=== PATIENT | male | born 1985 | race Caucasian/White ===

== ENCOUNTER 2025-03-31 23:02 | Inpatient (IN) | payer OTHER ==
[~2025-03-31] VITALS: Ht 177.8 cm; Wt 123.3 kg
[2025-04-01] VITALS (14 sets, daily range): BP systolic 101–188; BP diastolic 57–84
[2025-04-01] MEDS ORDERED: LOSARTAN POTAS100 M1 PO (01:26)
[2025-04-01] MEDS ORDERED: ATOR80 PO (01:28)
[2025-04-01] MEDS ORDERED: GLIP10 (01:28)
[2025-04-01] MEDS ORDERED: SPIR50 PO (01:29)
[2025-04-01] MEDS ORDERED: AMLO10 PO (01:30)
[2025-04-01] MEDS ORDERED: CHLO25B PO (01:38)
[2025-04-01] MEDS ORDERED: Vancomycin (Pharmacy Consult) IV SCH (01:55)
[2025-04-01] MEDS ORDERED: CARV25 PO (01:56)
[2025-04-01] MEDS ORDERED: JARDIANCE10 MG PO (01:57)
[2025-04-01] MEDS ORDERED: ISOSORBIDE MONO60 MG PO (01:58)
[2025-04-01] MEDS ORDERED: DOXA1 PO (02:00)
[2025-04-01] MEDS ORDERED: Insulin Human Lispro 100 Units/ML 3ML Syringe SC SCH ×2 (02:00→18:00)
[2025-04-01] MEDS ORDERED: Insulin Glargine-Yfgn 100 Unit/mL 3 ML SYR SC ONE (02:00)
[2025-04-01] MEDS ORDERED: Ondansetron HCl 2 MG / ML 2ML Vial IV PRN ×2 (02:05→15:20)
[2025-04-01] MEDS ORDERED: HYDROmorphone HCl/Pf 1MG SYR IV PRN ×3 (02:05→15:25)
[2025-04-01] MEDS ORDERED: HydrALAZINE HCl 20 MG / ML 1ML Vial IV PRN ×2 (02:15→15:20)
--- NOTE | 2025-04-01 02:36 | NUR ---
DIRECT ADMIT NOTE PT ARRIVED TO PCU 15 FROM [facility] @ APPRX 0110. PT SELF TRANSFERED FROM [facility] TO PCU BED/ PAIN TO RIGHT FOOT. REPORT RECIVED BY THIS RN FROM SURGICAL FLOOR RN, NIDHI. DR. KENT TO ROOM @ APPROX 0120, NEW ORDERS PLACED PT IS ALERT AND ORIENTED X4, ABLE TO MAKE NEEDS KNOWN, B/P ELEVATED AND HR 100'S BUT PT NOT IN DISTRESS, ALL OTHER VSS.
[2025-04-01] MEDS ORDERED: CefTRIAXone Sodium 1,000 MG in NS 100 ML IV ONE (02:55)
[2025-04-01 04:02] LABS: BASOPHILS ABSOLUTE AUTO 0.05 K/mm3 (0.00-0.23); BASOPHILS PERCENT AUTO 0 % (0-2); EOSINOPHILS ABSOLUTE AUTO 0.25 K/mm3 (0.00-0.68); EOSINOPHILS PERCENT AUTO 2 % (0-6); Hematocrit 33.7 % (37.0-53.0); Hemoglobin 11.2 g/dL (13.5-17.5); IMMATURE GRAN ABSOLUTE AUTO 0.09 K/mm3 (0.00-0.10); IMMATURE GRAN PERCENT AUTO 1 % (0-1); LYMPHOCYTES ABSOLUTE AUTO 1.47 K/mm3 (0.84-5.20); LYMPHOCYTES PERCENT AUTO 11 % (21-46); MONOCYTES ABSOLUTE AUTO 0.87 K/mm3 (0.16-1.47); MONOCYTES PERCENT AUTO 7 % (4-13); Mean Corpuscular HGB Conc 33.2 g/dL (31.5-36.5); Mean Corpuscular Volume 81 fL (80-100); NEUTROPHILS ABSOLUTE AUTO 10.15 K/mm3 (1.96-9.15); NEUTROPHILS PERCENT AUTO 79 % (41-73); NRBC ABSOLUTE 0.00 K/mm3 (0.00-0.02); NRBC Auto 0.0 /100 WBC (0.0-0.2); Platelet Count 277 K/mm3 (150-400); RDW Coefficient Variation 13.0 % (11.7-14.2); RDW Standard Deviation 38.4 fL (35.1-46.3)
[2025-04-01 04:32] LABS: Alanine Aminotransfer (ALT/SGP 14.0 U/L (12-78); Albumin, Blood 1.8 g/dL (3.4-5.0); Albumin/Globulin Ratio 0.5 (0.8-1.8); Anion Gap 8.0 mmol/L (3-11); Aspartate Aminotrans (AST/SGOT 10.0 U/L (12-37); Bilirubin, Total 0.2 mg/dL (0.1-1.0); Blood Urea Nitrogen 31.0 mg/dL (8-24); C-REACTIVE PROTEIN, EXT RANGE 14.9 mg/dL (0.000-0.300); CO2, Blood 25.0 mmol/L (21-32); Calcium, Blood 7.4 mg/dL (8.5-10.1); Chloride, Blood 103.0 mmol/L (98-108); Creatinine, Blood 1.92 mg/dL (0.60-1.20); Globulin, Blood 3.5 g/dL (2.2-4.0); Glucose, Blood 388.0 mg/dL (70-99); Potassium, Blood 3.8 mmol/L (3.5-5.5); Sodium, Blood 132.0 mmol/L (136-145); Total Protein, Blood 5.3 g/dL (6.4-8.2)
--- NOTE | 2025-04-01 06:13 | NUR ---
SHIFT SUMMARY PT IS A&O X4, ABLE TO MAKE NEEDS KNOWN, MOVING ALL EXTREMITIES WITH PURPOSE, REPOSITIONING SELF IN BED, OBEYS COMMANDS, ABLE TO STAND AT BEDSIDE WITH FWW/ PAIN WITH WEIGHT BEING PLACED ON RIGHT FOOT. SPO2 GREATER THAN 90% RA, LUNGS SOUND CLEAR T/O, PT DENIES SOB, NO SIGNS OF RESPIRATORY DISTRESS NOTED. CONTINUOUS TELE MONITORING, SINUS 100-110 S, PT DENIES CHEST P/P T/O THIS SHIFT, BP ELEVATED/GAVE PRN HYDRALAZINE X1, PULSES PRESENT T/O. BOWEL TONES PRESENT IN ALL 4Q, PT DENIES FEELINGS OF NAUSAE OR CONSTIPATION. PT REPORTING PAIN TI RIGHT FOOT, MEDICATED PER ORDERS RIGHT FOOT HAD REDSPOT ON THE TOP, DISOLORATION AND THE SIDE OF THE 5TH TOE, AND DISOLORATION TO THE BOTTOM OF THE FOOT/ SEE PHOTOS IN THE CHART BED LOWEST POSITION, CALL LIGHT IN REACH, AWAITING TO GIVE REPORT TO ONCOMING RN.
[2025-04-01] MEDS ORDERED: Insulin Glargine-Yfgn 100 Unit/mL 3 ML SYR SC SCH (08:00)
[2025-04-01] MEDS ORDERED: Lactobacil 2-S.Thermo-Bifido 1 1 Cap PO SCH (09:00)
[2025-04-01] MEDS ORDERED: Isosorbide Mononitrate 60 MG TABCR PO SCH (09:00)
[2025-04-01] MEDS ORDERED: Metoclopramide HCl 5MG / ML 2ML Vial ONE (14:58)
[2025-04-01] MEDS ORDERED: Ondansetron HCl 2 MG / ML 2ML Vial ONE (14:58)
[2025-04-01] MEDS ORDERED: Ketorolac Tromethamine 30mg Vial ONE (14:59)
[2025-04-01] MEDS ORDERED: Albuterol 2.5 MG/3 ML VIAL INH PRN (15:20)
[2025-04-01] MEDS ORDERED: Prochlorperazine Edisylate 10 mg Vial IV PRN (15:20)
[2025-04-01] MEDS ORDERED: Bupivacaine 0.5% HCl 5 MG/ML 30MLVIAL ONE (15:22)
[2025-04-01] MEDS ORDERED: FentaNYL Citrate 50 MCG/ML 2 ML Injection IV PRN ×2 (15:25)
[2025-04-01] MEDS ORDERED: HYDROmorphone HCl/Pf 1MG SYR ONE (16:21)
--- NOTE | 2025-04-01 16:51 | NUR ---
History, Chart, Medications and Allergies reviewed before start of procedure. Pre-Op teaching done. Pt verbalizes understanding. Patient confirms NPO status and agrees with scheduled surgery. Lungs clear T/O to Auscultation.
[2025-04-01] MEDS ORDERED: ePHEDrine Sulfate 50 MG/ML 1ML Injection ONE (16:53)
[2025-04-01] MEDS ORDERED: Phenylephrine HCl 100 MCG/ML-NS 10MLSYR (1MG/10ML) ONE (17:20)
[2025-04-01] MEDS ORDERED: Naloxone HCl 0.4MG / ML 1ML Vial ONE (17:26)
--- NOTE | 2025-04-01 18:38 | NUR ---
SHIFT SUMMARY POD0 R FOOT 5TH DIGIT AMPUTATION, BROUGHT BACK OUT FROM PACU AT APPROX 1800, A/OX4, SLIDE TRANSFER TO HIS BED FROM [facility], TOLERATING PO INTAKE, DENIES PAIN AT THIS TIME, GAUZE/KERLEX AND WES WRAP TO R FOOT WITH NO SIGNS OF DRAINAGE, CAP REFIL < 3 SECONDS WITH PALPABLE POSTERIOR TIBIAL PULSES. CURRENTLY EATING DINNER WITH NO S/SX OF DISCOMFORT. STARTING POST OP VITALS.
[2025-04-01] MEDS ORDERED: HYDROcodone 5-APAP 325 TAB PO PRN (21:10)
[2025-04-02 03:08] VITALS: BP 135/66
--- NOTE | 2025-04-02 03:42 | NUR ---
TRANSFER OF CARE / SHIFT SUMMARY REPORT GIVEN BY THIS RN TO LEOBARDO RN @ APPROX 0324 PT TAKEN OVER BY BED @ APPROX 0344, LEOBARDO AT BEDSIDE WHEN PT ARRIVED TO SURICAL ROOM 227 PT IS A&O X4, ABLE TO MAKE NEEDS KNOWN, MOVING ALL EXTREMITIES WITH PURPOSE, REPOSITIONING SELF IN BED, OBEYS COMMANDS, ABLE TO STAND AT BEDSIDE WITH FWW IS PARTIAL WEIGHT BEARING ON THE RLW WITH 50%. SPO2 GREATER THAN 90% RA, LUNGS SOUND CLEAR T/O, PT DENIES SOB, NO SIGNS OF RESPIRATORY DISTRESS NOTED. CONTINUOUS TELE MONITORING, SINUS 70-80 S, PT DENIES CHEST P/P T/O THIS SHIFT, BP STABLE WITH MAP GREATER THAN 65, PULSES PRESENT T/O. BOWEL TONES PRESENT IN ALL 4Q, PT DENIES FEELINGS OF NAUSAE OR CONSTIPATION. PT DENIES PAIN IN RIGHT FOOT THE MAJORITY OF THIS SHIFT/ MENTIONED START OF PAIN DURING TRANSFER TO SURGICAL FLOOR, S/P PARTIAL RIGHT FOOT AMPUTATION, DRESSING IS C/D/I BED LOWEST POSITION, CALL LIGHT IN REACH, AWAITING TO GIVE REPORT TO ONCOMING RN.
[2025-04-02 04:04] LABS: BASOPHILS ABSOLUTE AUTO 0.04 K/mm3 (0.00-0.23); BASOPHILS PERCENT AUTO 1 % (0-2); EOSINOPHILS ABSOLUTE AUTO 0.24 K/mm3 (0.00-0.68); EOSINOPHILS PERCENT AUTO 3 % (0-6); Hematocrit 32.4 % (37.0-53.0); Hemoglobin 10.7 g/dL (13.5-17.5); IMMATURE GRAN ABSOLUTE AUTO 0.02 K/mm3 (0.00-0.10); IMMATURE GRAN PERCENT AUTO 0 % (0-1); LYMPHOCYTES ABSOLUTE AUTO 0.95 K/mm3 (0.84-5.20); LYMPHOCYTES PERCENT AUTO 11 % (21-46); MONOCYTES ABSOLUTE AUTO 0.60 K/mm3 (0.16-1.47); MONOCYTES PERCENT AUTO 7 % (4-13); Mean Corpuscular HGB Conc 33.0 g/dL (31.5-36.5); Mean Corpuscular Volume 83 fL (80-100); NEUTROPHILS ABSOLUTE AUTO 6.54 K/mm3 (1.96-9.15); NEUTROPHILS PERCENT AUTO 78 % (41-73); NRBC ABSOLUTE 0.00 K/mm3 (0.00-0.02); NRBC Auto 0.0 /100 WBC (0.0-0.2); Platelet Count 287 K/mm3 (150-400); RDW Coefficient Variation 13.2 % (11.7-14.2); RDW Standard Deviation 39.8 fL (35.1-46.3)
--- NOTE | 2025-04-02 04:24 | NUR ---
SHIFT SUMMARY FELIPE WAS ALERT AND FULLY ORIENTED ON TRANSFER TO UNIT, BUT SLEEPY AND REQUESTING TO BE ALLOWED TO GO STRAIGHT TO SLEEP. SENSATION RETURNING TO FOOT, PAIN MEDS GIVEN. CIRCULATION INTACT. DRESSING TO FOOT C.D.I. NO ACUTE EVENTS, NO CHANGES TO PT CONDITION NOTED.
[2025-04-02 04:25] LABS: Alanine Aminotransfer (ALT/SGP 13.0 U/L (12-78); Albumin, Blood 1.6 g/dL (3.4-5.0); Albumin/Globulin Ratio 0.4 (0.8-1.8); Anion Gap 7.0 mmol/L (3-11); Aspartate Aminotrans (AST/SGOT 9.0 U/L (12-37); Bilirubin, Total 0.2 mg/dL (0.1-1.0); Blood Urea Nitrogen 34.0 mg/dL (8-24); CO2, Blood 26.0 mmol/L (21-32); Calcium, Blood 7.9 mg/dL (8.5-10.1); Chloride, Blood 108.0 mmol/L (98-108); Creatinine, Blood 2.49 mg/dL (0.60-1.20); Globulin, Blood 3.6 g/dL (2.2-4.0); Glucose, Blood 206.0 mg/dL (70-99); Potassium, Blood 4.1 mmol/L (3.5-5.5); Sodium, Blood 137.0 mmol/L (136-145); Total Protein, Blood 5.2 g/dL (6.4-8.2)
[2025-04-02] MEDS ORDERED: CefTRIAXone Sodium 2,000 MG in NS 100 ML IV SCH (06:00)
[2025-04-02 07:27] VITALS: BP 135/66
[2025-04-02] MEDS ORDERED: Insulin Human Lispro 100 Units/ML 3ML Syringe SC SCH (07:30)
[2025-04-02] MEDS ORDERED: Enoxaparin 40 MG/0.4 ML SYR SC SCH (13:00)
[2025-04-02 13:01] LABS: Alanine Aminotransfer (ALT/SGP 12.0 U/L (12-78); Albumin, Blood 1.6 g/dL (3.4-5.0); Albumin/Globulin Ratio 0.4 (0.8-1.8); Anion Gap 7.0 mmol/L (3-11); Aspartate Aminotrans (AST/SGOT 10.0 U/L (12-37); Bilirubin, Total 0.2 mg/dL (0.1-1.0); Blood Urea Nitrogen 33.0 mg/dL (8-24); CO2, Blood 26.0 mmol/L (21-32); Calcium, Blood 8.1 mg/dL (8.5-10.1); Chloride, Blood 105.0 mmol/L (98-108); Creatinine, Blood 2.33 mg/dL (0.60-1.20); Globulin, Blood 3.7 g/dL (2.2-4.0); Glucose, Blood 194.0 mg/dL (70-99); Potassium, Blood 4.4 mmol/L (3.5-5.5); Sodium, Blood 134.0 mmol/L (136-145); Total Protein, Blood 5.3 g/dL (6.4-8.2)
--- NOTE | 2025-04-02 14:16 | NUR ---
SUMMARY: PT IS POD1 R 5TH TOE AMPUTATION. A/O, VSS. SURGICAL SITE WNL. PT ABLE TO AMBULATE WITH THERAPY TODAY. REPORTS MINIMAL PAIN. ELEVATING FOOT IN BED. NO CHANGE IN TELE, ORDER TO DC. CBG'S STABLE. NO ACUTE CONCERNS AT THIS TIME. PT USES CALL LIGHT AND MAKES NEEDS KNOWN.
[2025-04-02 15:00] VITALS: BP 115/48
--- NOTE | 2025-04-02 15:22 | NUR ---
ASSUMED CARE OF PATIENT. PT RESTING. IMPROVED PAIN CONTROL AFTER PO NORCO PER PT. PT ALLOWED TO NAP. WILL CONTINUE TO MONITOR.
[2025-04-02 16:25] LABS: Vancomycin, Trough 26.8 ug/mL (5.0-10.0)
--- NOTE | 2025-04-02 17:40 | NUR ---
PT EATING MEAL TRAY. DENIES COMPLAINTS. DRESSING INTACT. PLAN FOR DRESSING CHANGE WITH PODIATRY TOMORROW. WILL CONTINUE TO MONITOR.
[2025-04-02 21:19] VITALS: BP 154/71
--- NOTE | 2025-04-03 05:16 | NUR ---
SHIFT SUMMARY FELIPE WAS ALERT AND FULLY ORIENTED ON ASSESSMENT. PT SLEPT MOST OF THE SHIFT. PAIN WELL CONTROLLED, NOT REQUIRING PAIN MANAGEMENT AT THIS TIME. VSS, CIRCULATION TO R FOOT INTACT, SENSATION AT BASELINE. 50% WB TO R FOOT. NO ACUTE EVENTS OR CHANGES TO PT CONDITION.
[2025-04-03 05:23] VITALS: BP 155/75
[2025-04-03 05:36] LABS: BASOPHILS ABSOLUTE AUTO 0.04 K/mm3 (0.00-0.23); BASOPHILS PERCENT AUTO 1 % (0-2); EOSINOPHILS ABSOLUTE AUTO 0.26 K/mm3 (0.00-0.68); EOSINOPHILS PERCENT AUTO 4 % (0-6); Hematocrit 30.8 % (37.0-53.0); Hemoglobin 10.0 g/dL (13.5-17.5); IMMATURE GRAN ABSOLUTE AUTO 0.02 K/mm3 (0.00-0.10); IMMATURE GRAN PERCENT AUTO 0 % (0-1); LYMPHOCYTES ABSOLUTE AUTO 1.22 K/mm3 (0.84-5.20); LYMPHOCYTES PERCENT AUTO 20 % (21-46); MONOCYTES ABSOLUTE AUTO 0.50 K/mm3 (0.16-1.47); MONOCYTES PERCENT AUTO 8 % (4-13); Mean Corpuscular HGB Conc 32.5 g/dL (31.5-36.5); Mean Corpuscular Volume 82 fL (80-100); NEUTROPHILS ABSOLUTE AUTO 4.20 K/mm3 (1.96-9.15); NEUTROPHILS PERCENT AUTO 67 % (41-73); NRBC ABSOLUTE 0.00 K/mm3 (0.00-0.02); NRBC Auto 0.0 /100 WBC (0.0-0.2); Platelet Count 302 K/mm3 (150-400); RDW Coefficient Variation 13.0 % (11.7-14.2); RDW Standard Deviation 39.2 fL (35.1-46.3)
[2025-04-03 06:06] LABS: Alanine Aminotransfer (ALT/SGP 14.0 U/L (12-78); Albumin, Blood 1.5 g/dL (3.4-5.0); Albumin/Globulin Ratio 0.4 (0.8-1.8); Anion Gap 8.0 mmol/L (3-11); Aspartate Aminotrans (AST/SGOT 14.0 U/L (12-37); Bilirubin, Total 0.2 mg/dL (0.1-1.0); Blood Urea Nitrogen 37.0 mg/dL (8-24); CO2, Blood 25.0 mmol/L (21-32); Calcium, Blood 8.0 mg/dL (8.5-10.1); Chloride, Blood 109.0 mmol/L (98-108); Creatinine, Blood 2.48 mg/dL (0.60-1.20); Globulin, Blood 3.7 g/dL (2.2-4.0); Glucose, Blood 148.0 mg/dL (70-99); Potassium, Blood 4.5 mmol/L (3.5-5.5); Sodium, Blood 137.0 mmol/L (136-145); Total Protein, Blood 5.2 g/dL (6.4-8.2)
[2025-04-03 07:18] VITALS: BP 140/60
[2025-04-03 11:58] LABS: Vancomycin, Random 20.4 ug/mL
--- NOTE | 2025-04-03 15:05 | NUR ---
ASSUMPTION ASSUMED CARE OF PT @0700. PT AXO4. PAIN MEDS ADMINISTERED WITH DRESSING CHANGE TO R FOOT. WOUND REPACKED AND REDRESSED ORDERED. PT WITH FAMILY FOR WALK AROUND HOSPITAL IN [facility]. NO ISSUES NOTED. RECEIVED CULTURE FOLLOWUP FROM [facility] TEAM AWARE - AWAITING PODIATRY INPUT FOR PLAN OF CARE GOING FORWARD.
[2025-04-03 15:39] VITALS: BP 144/70
--- NOTE | 2025-04-03 17:27 | NUR ---
SUMMARY SEE ASSUMPTION OF CARE NOTE. POST DRESSING CHANGE - PT NOT REQUIRING ANY MORE PAIN MEDS AT THIS TIME - DENIES NEED. DRESSING CDI. TREATING CBG'S ORDERED WITH INSULIN. PT TOOK WC THROUGH FACILITY, TOLERATED WELL. WORKED WITH PHYSICAL THERAPY. PODIATRY NOT IN TO SEE PT TODAY, AWAITING INPUT. PT AWARE HE MAY BE IN FACILITY UNTIL SATURDAY - AGREEABLE TO THIS.
[2025-04-03 20:55] VITALS: BP 170/82
--- NOTE | 2025-04-04 04:32 | NUR ---
SHIFT SUMMARY AOX4. BP SLIGHTLY ELEVATED @HS, 170/82, MEDICATED W/SCHEDULED BP MEDS. VSS THIS AM. POD 3-R 5TH LITTLE TOE & PARTIAL FOOT AMP. DRESSING C/D/I UPON ASSESSMENT. PT ABLE TO WIGGLE TOES, STATES HE CAN FEEL TOUCH, CAP REFILL <3 SEC. REPORTS CHRONIC NEUROPATHY. DENIES ANY PAIN, N/V OR DYSPNEA. PT ONLY 50% WT BEARING TO RLE. AWAITING DR EDWARDS TO ROUND ON PT & UPDATE PLAN OF CARE. CALL LIGHT IN REACH.
[2025-04-04 05:31] VITALS: BP 155/75
[2025-04-04 05:54] LABS: BASOPHILS ABSOLUTE AUTO 0.06 K/mm3 (0.00-0.23); BASOPHILS PERCENT AUTO 1 % (0-2); EOSINOPHILS ABSOLUTE AUTO 0.27 K/mm3 (0.00-0.68); EOSINOPHILS PERCENT AUTO 5 % (0-6); Hematocrit 29.8 % (37.0-53.0); Hemoglobin 10.0 g/dL (13.5-17.5); IMMATURE GRAN ABSOLUTE AUTO 0.02 K/mm3 (0.00-0.10); IMMATURE GRAN PERCENT AUTO 0 % (0-1); LYMPHOCYTES ABSOLUTE AUTO 1.13 K/mm3 (0.84-5.20); LYMPHOCYTES PERCENT AUTO 21 % (21-46); MONOCYTES ABSOLUTE AUTO 0.46 K/mm3 (0.16-1.47); MONOCYTES PERCENT AUTO 9 % (4-13); Mean Corpuscular HGB Conc 33.6 g/dL (31.5-36.5); Mean Corpuscular Volume 81 fL (80-100); NEUTROPHILS ABSOLUTE AUTO 3.46 K/mm3 (1.96-9.15); NEUTROPHILS PERCENT AUTO 64 % (41-73); NRBC ABSOLUTE 0.00 K/mm3 (0.00-0.02); NRBC Auto 0.0 /100 WBC (0.0-0.2); Platelet Count 436 K/mm3 (150-400); RDW Coefficient Variation 12.9 % (11.7-14.2); RDW Standard Deviation 38.1 fL (35.1-46.3)
[2025-04-04 06:26] LABS: Anion Gap 8.0 mmol/L (3-11); Blood Urea Nitrogen 36.0 mg/dL (8-24); CO2, Blood 25.0 mmol/L (21-32); Calcium, Blood 8.2 mg/dL (8.5-10.1); Chloride, Blood 109.0 mmol/L (98-108); Creatinine, Blood 2.11 mg/dL (0.60-1.20); Glucose, Blood 163.0 mg/dL (70-99); Potassium, Blood 4.7 mmol/L (3.5-5.5); Sodium, Blood 137.0 mmol/L (136-145)
[2025-04-04 06:58] VITALS: BP 161/77
--- NOTE | 2025-04-04 10:31 | NUR ---
JERRY TEMPLETON TO ROOM TO REPEAT WOUND DRESSING. DR SPENCER IN WITH HIM. PLAN TO KEEP OVERNIGHT AND DC TOMORROW WITH WOUND CARE RESOURCES PER BOTH PHYSICIANS.
[2025-04-04 14:47] VITALS: BP 148/74
--- NOTE | 2025-04-04 17:07 | NUR ---
SUMMARY NO ACUTE CHANGES THIS SHIFT. VSS. AXO4. RESTING IN BED OR GOING AROUND FACILITY WITH FAMILY IN WHEELCHAIR. BLOOD SUGARS STABLE. DRESSING CDI TO R FOOT. PER DR JERRY LOPEZ HOSPITALIST TEAM, PLAN TO DC TOMORROW. WILL NEED 6 WEEKS OF HOME ABX THERAPY UPON DC. PT AWARE.
[2025-04-04 19:43] VITALS: BP 175/78
[2025-04-05 05:40] VITALS: BP 178/79
[2025-04-05 06:43] LABS: BASOPHILS ABSOLUTE AUTO 0.07 K/mm3 (0.00-0.23); BASOPHILS PERCENT AUTO 1 % (0-2); EOSINOPHILS ABSOLUTE AUTO 0.32 K/mm3 (0.00-0.68); EOSINOPHILS PERCENT AUTO 6 % (0-6); Hematocrit 33.9 % (37.0-53.0); Hemoglobin 11.2 g/dL (13.5-17.5); IMMATURE GRAN ABSOLUTE AUTO 0.03 K/mm3 (0.00-0.10); IMMATURE GRAN PERCENT AUTO 1 % (0-1); LYMPHOCYTES ABSOLUTE AUTO 1.22 K/mm3 (0.84-5.20); LYMPHOCYTES PERCENT AUTO 24 % (21-46); MONOCYTES ABSOLUTE AUTO 0.53 K/mm3 (0.16-1.47); MONOCYTES PERCENT AUTO 10 % (4-13); Mean Corpuscular HGB Conc 33.0 g/dL (31.5-36.5); Mean Corpuscular Volume 82 fL (80-100); NEUTROPHILS ABSOLUTE AUTO 3.02 K/mm3 (1.96-9.15); NEUTROPHILS PERCENT AUTO 58 % (41-73); NRBC ABSOLUTE 0.00 K/mm3 (0.00-0.02); NRBC Auto 0.0 /100 WBC (0.0-0.2); Platelet Count 350 K/mm3 (150-400); RDW Coefficient Variation 12.8 % (11.7-14.2); RDW Standard Deviation 37.7 fL (35.1-46.3)
[2025-04-05 06:56] LABS: Alanine Aminotransfer (ALT/SGP 21.0 U/L (12-78); Albumin, Blood 1.8 g/dL (3.4-5.0); Albumin/Globulin Ratio 0.4 (0.8-1.8); Anion Gap 7.0 mmol/L (3-11); Aspartate Aminotrans (AST/SGOT 21.0 U/L (12-37); Bilirubin, Total 0.2 mg/dL (0.1-1.0); Blood Urea Nitrogen 37.0 mg/dL (8-24); CO2, Blood 27.0 mmol/L (21-32); Calcium, Blood 8.3 mg/dL (8.5-10.1); Chloride, Blood 110.0 mmol/L (98-108); Creatinine, Blood 1.93 mg/dL (0.60-1.20); Globulin, Blood 4.0 g/dL (2.2-4.0); Glucose, Blood 143.0 mg/dL (70-99); Potassium, Blood 4.7 mmol/L (3.5-5.5); Sodium, Blood 139.0 mmol/L (136-145); Total Protein, Blood 5.8 g/dL (6.4-8.2)
[2025-04-05 07:20] VITALS: BP 167/82
--- NOTE | 2025-04-05 07:30 | NUR ---
SUMMARY PT NOT REQUIRING PAIN MEDS. PLANNING FOR DISCHARGE TODAY.
--- NOTE | 2025-04-05 15:21 | NUR ---
PT UP AMBULATING IN HALLWAY USING WALKER. EXPRESSES FRUSTRATION OVER NOT GETTING TO DISCHARGE TODAY. WILL CONTINUE TO MONITOR.
[2025-04-05 15:46] VITALS: BP 140/67
[2025-04-05] MEDS ORDERED: CEFTRIAXONE2 G1 IV (16:50)
[2025-04-05] MEDS ORDERED: HUMALOG MI100 UNIT/1 SC (16:52)
[2025-04-05] MEDS ORDERED: VISBIOME 112.51 EACH PO (16:56)
== END 2025-04-05 17:09 | disposition home or self-care (01) | DRG 854 ==
LOC: SURS 23:02 → PCU 04-01 01:05 → SURS 04-02 03:40
PROVIDERS: Podiatrist; Student in an Organized Health Care Education/Training Program; ADMIT Family Medicine
PROC: 3E03329 Introduction of Other Anti-infective into Peripheral Vein, Percutaneous Approach (ICD-10-PCS; 2025-04-01)
PROC: 0Y6X0Z0 Detachment at Right 5th Toe, Complete, Open Approach (ICD-10-PCS; principal; 2025-04-01 16:00)
DX: A41.9 Sepsis, unspecified organism (principal); E87.1 Hypo-osmolality and hyponatremia; I13.0 Hypertensive heart and chronic kidney disease with heart failure and stage 1 through stage 4 chronic kidney disease, or unspecified chronic kidney disease; I50.22 Chronic systolic (congestive) heart failure; L02.415 Cutaneous abscess of right lower limb; M86.8X7 Other osteomyelitis, ankle and foot; L03.115 Cellulitis of right lower limb; N17.9 Acute kidney failure, unspecified; M00.9 Pyogenic arthritis, unspecified; E11.69 Type 2 diabetes mellitus with other specified complication; E11.22 Type 2 diabetes mellitus with diabetic chronic kidney disease; N18.32 Chronic kidney disease, stage 3b; E66.9 Obesity, unspecified; E11.65 Type 2 diabetes mellitus with hyperglycemia; E11.621 Type 2 diabetes mellitus with foot ulcer; L97.514 Non-pressure chronic ulcer of other part of right foot with necrosis of bone; Z68.37 Body mass index [BMI] 37.0-37.9, adult; Z98.52 Vasectomy status; Z79.84 Long term (current) use of oral hypoglycemic drugs; Z79.899 Other long term (current) drug therapy
CPT/HCPCS: 36415; 36569; 73630; 80048; 80053; 80202; 82947; 85025; 85651; 86140; 87071; 87075; 87147; 87205; 94760; 97116; 97161; A6253; A9270; C1751; J0360; J0696; J1171; J1650; J1815; J1885; J2310; J2371; J2405; J2704; J2765; J3373; J7040; J7050; J7120